=== PATIENT | male | born 1990 | race Caucasian/White ===

== ENCOUNTER 2024-02-25 13:23 | Emergency (ER) | payer OTHER, SELFPAY ==
[2024-02-25 13:28] VITALS: BP 136/77; PULSE 75; RESP 16; TEMP 36.8; O2SAT 98; BMI 38.0
[2024-02-25 14:09] LABS: Alanine Aminotransferase 63 IU/L (<50)
[2024-02-25 15:00] LABS: HIV 1 & 2 Ab/Ag 4th Gen Combo NEGATIVE (NEGATIVE); Hep C Virus Ab w/Reflex Quant NEGATIVE s/c (NEGATIVE)
--- NOTE | 2024-02-25 15:36 | PC.NURSE ---
Needle stick at place of work while giving immunization.
[2024-02-25 15:37] VITALS: BP 145/73; PULSE 69; RESP 16; O2SAT 99
[2024-02-27 07:36] LABS: Hepatitis B Surf Ab Qualitativ Reactive (.)
--- NOTE | 2024-03-03 11:47 | ED_ITS ---
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 Patient states he washed his hands, applied a Band-Aid on the finger that was. Patient states he does take HIV prep. Patient declines any HIv PEP. Related Data Allergies Allergy/AdvReac Type Severity Reaction Status Date / Time No Known Drug Allergies Allergy Verified 02/25/24 13:31 Review of Systems <Magaly Alford PA-C - Last Filed: 03/03/24 15:39> Constitutional Constitutional: Denies chills, Denies fatigue, Denies fever(s), Denies frequent falls, Denies lethargy and Denies weakness Eyes Eyes: Denies change in vision, Denies eye discharge, Denies irritation and Denies loss of vision ENT Ears, Nose, Mouth, and Throat: Denies change in voice, Denies dizziness, Denies neck pain, Denies sore throat and Denies throat swelling Cardiovascular Cardiovascular: Denies chest pain, Denies irregular heart rhythm, Denies lightheadedness, Denies palpitations, Denies dyspnea, Denies dyspnea on exertion and Denies orthopnea Respiratory Respiratory: Denies cough, Denies dyspnea, Denies dyspnea on exertion and Denies wheezing Gastrointestinal Gastrointestinal: Denies abdominal pain, Denies change in bowel habits, Denies diarrhea, Denies nausea and Denies vomiting Musculoskeletal Musculoskeletal: Denies neck pain and Denies numbness Integumentary/Breasts Skin/Breast: Denies pruritus, Denies erythema, Denies rash and Denies wounds Comments: Needle stick injury on right middle finger Neurologic Neurologic: Denies behavioral changes, Denies confusion, Denies dizziness, Denies frequent falls, Denies loss of vision, Denies numbness and Denies weakness Psychiatric Psychiatric: Denies anxiety, Denies behavioral changes, Denies confusion, Denies depression, Denies homicidal ideation and Denies suicidal ideation Endocrine Endocrine: Denies fatigue, Denies flushing and Denies palpitations Hematologic/Lymphatic Hematologic/Lymphatic: Denies easy bruising Allergic/Immunologic Allergic/Immunologic: Denies urticaria, Denies throat swelling and Denies wheezing Patient History <Magaly Alford PA-C - Last Filed: 03/03/24 15:39> Social History Smoking Status: Never smoker Smoking Status: Never smoker alcohol intake frequency: a few times a month Exam <Magaly Alford PA-C - Last Filed: 03/03/24 15:39> Narrative Exam Narrative: Const General:?cooperative, healthy appearing and comfortable [facility] Head:?normal to inspection Ears:?hearing grossly normal bilaterally Nose:?external nose normal Face and sinus:?normal facial exam and sinuses nontender Mouth:?oral mucosae normal Throat:?posterior oropharynx normal Eyes General:?appearance normal, both eyes and all related structures Neck Neck:?normal visual inspection and no lymphadenopathy noted Resp Effort & Inspection:?normal respiratory effort Auscultation:?clear to auscultation bilaterally Cardio Rate:?regular rate Rhythm:?regular rhythm Integumentary There is a small puncture wound in the right middle fingertip. Signs of infection. Not bleeding. Neuro General:?patient alert, patient awake and patient oriented x3 Initial Vital Signs Initial Vital Signs: Vital Signs Temperature 98.2 F 02/25/24 13:28 Pulse Rate 75 02/25/24 13:28 Respiratory Rate 16 02/25/24 13:28 Blood Pressure 136/77 02/25/24 13:28 Pulse Oximetry 98 02/25/24 13:28 Oxygen Delivery Method Room Air 02/25/24 13:28 <Simi Mitchell DO - Last Filed: 03/06/24 08:34> Initial Vital Signs Initial Vital Signs: Vital Signs Temperature 98.2 F 02/25/24 13:28 Pulse Rate 75 02/25/24 13:28 Respiratory Rate 16 02/25/24 13:28 Blood Pressure 136/77 02/25/24 13:28 Pulse Oximetry 98 02/25/24 13:28 Oxygen Delivery Method Room Air 02/25/24 13:28 Medical Decision Making <Magaly Alford PA-C - Last Filed: 03/03/24 15:39> Lab Data Labs: Lab Results 02/25/24 Range/Units 13:45 ALT 63 H (<50) IU/L Hep Bs Antibody Reactive (.) Hepatitis C Antibody Negative (NEGATIVE) s/c HIV 1&2 Ab/P24 Ag 4thGn Negative (NEGATIVE) MDM Narrative Medical decision making narrative: 33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 The routine labs were obtained per protocol. Negative for hep B antibody, hep C antibody. HIV negative. Patient counseled. Patient declines HIV pep since he is already on HIV prep. ED return precautions discussed with patient. Patient verbalized understanding. Medical records reviewed: Yes <Simi Mitchell DO - Last Filed: 03/06/24 08:34> Lab Data Labs: Lab Results 02/25/24 Range/Units 13:45 ALT 63 H (<50) IU/L Hep Bs Antibody Reactive (.) Hepatitis C Antibody Negative (NEGATIVE) s/c HIV 1&2 Ab/P24 Ag 4thGn Negative (NEGATIVE) Discharge Plan Departure Patient Disposition: Home Clinical Impression: Needlestick injury accident with exposure to body fluid Instructions: DI for Accidental Exposure to Body Fluids Activity Restrictions/Additional Instructions: You were evaluated in the ED today for an accidental needlestick injury. We did some routine labs which are hepatitis-B antibody, hepatitis-C antibody, HIV test. The HIV test and hepatitis C antibody were negative. We are still awaiting the hepatitis B resolved and will call you if positive. We did discuss HIV post exposure prophylaxis, however it appears that you were already on prophylaxis. Please return to the ED if you have any worsening symptoms. Stand Alone Forms: Patient Portal/API/Survey ED Sign-out <Simi Mitchell DO - Last Filed: 03/06/24 08:34> Cosign ED Attending Rosendoature Attestation: I was immediately available in the department for consultation.
== END 2024-02-25 15:38 | disposition home or self-care (01) ==
PROVIDERS: Emergency Provider Student in an Organized Health Care Education/Training Program
DX: Z77.21 Contact with and (suspected) exposure to potentially hazardous body fluids (principal); W46.1XXA Contact with contaminated hypodermic needle, initial encounter
CPT/HCPCS: 36415; 84460; 86706; 86803; 87389; 99281; 99283